=== PATIENT | female | born 1930 | race African-American/Black ===

== ENCOUNTER 2016-04-29 11:02 | Emergency (ER) | payer MEDICARE, MEDICAID ==
[~2016-04-29] VITALS: Ht 165.1 cm; Wt 116.0 kg
[~2016-04-29 11:02] MED LIST: AMLO1TAB15 PO; AMLO1TAB39 PO; APIX5TAB PO; DEXL60CA3 PO; DOCU100C50 PO; GLYB5TAB7 PO; HYDR-3933 PO; OMEP20CA10 PO; POTA10CA42 PO; POTA10TA69 PO; SITA100T6 PO; SUCR1ORA PO; TRAM50TA3 PO; [UNRECOGNIZED DRUG - OTHER]; glyburide
[2016-04-29 11:49] LABS: BASOPHILS % 0.6 % (0.0-2.0); EOSINOPHILS % 0.7 % (0.0-5.0); HEMOGLOBIN. 11.2 g/dL (12.0-16.0); LYMPHOCYTES % 10.3 % (20.0-50.0); MEAN CORPUSCULAR HEMOGLOBIN 28.1 pg (28.0-32.0); MEAN CORPUSCULAR HGB CONC 33.1 g/dL (31.0-37.0); MEAN CORPUSCULAR VOLUME 84.9 fL (81.0-99.0); MEAN PLATELET VOLUME 7.1 fl (7.4-10.4); MONOCYTES % 5.3 % (2.0-8.0); NEUTROPHILS % 83.1 % (40.0-76.0); PLATELET 244 x1000/uL (130-400); RED CELL DISTRIBUTION WIDTH 18.6 % (11.6-14.6); WHITE BLOOD COUNT 9.9 x1000/uL (4.5-11.0)
[2016-04-29 11:56] LABS: INR 1.1; PROTHROMBIN TIME 11.3 sec
[2016-04-29 12:08] LABS: ALANINE AMINOTRANSFERASE 19 IU/L (13-61); ALBUMIN 3.4 g/dL (3.4-5.0); ANION GAP 12; CALCIUM 9.3 mg/dL (8.5-10.1); CARBON DIOXIDE 25 mEq/L (21-32); CHLORIDE 105 mEq/L (98-107); CREATINE KINASE 41 IU/L (26-192); INDEX HEMOLYSI 1 (1-3); INDEX ICTERIC 1 (1-4); INDEX LIPEMIC 1 (1-3); UREA NITROGEN BLOOD 26 mg/dL (7-21); eGFR 43 mL/min (>60)
[2016-04-29 12:09] LABS: TROPONIN I < 0.02 ng/mL (0.00-0.04)
[2016-04-29] MEDS ORDERED: ACETAMINOPHEN WITH CODEINE 300/30MG TABLET PO ONE (13:15)
[2016-04-29 13:46] LABS: CLARITY URINE CLEAR (CLEAR); COLOR URINE DARK YELLOW (YELLOW); GLUCOSE URINE NEGATIVE (NEGATIVE); KETONES URINE NEGATIVE (NEGATIVE); LEUKOCYTE ESTERASE URINE NEGATIVE (NEGATIVE); NITRITE URINE NEGATIVE (NEGATIVE); OCCULT BLOOD URINE NEGATIVE (NEGATIVE); PH URINE 5.5 (4.5-8.0); PROTEIN URINE NEGATIVE (NEGATIVE); SPECIFIC GRAVITY URINE 1.018 (1.005-1.030); UROBILINOGEN URINE 0.2 E.U./dL (0.2-1.0)
[2016-04-29 14:10] VITALS: BP 112/41
== END 2016-04-29 14:26 | disposition home or self-care (01) ==
LOC: ER 11:31
DX: N28.9 Disorder of kidney and ureter, unspecified (principal); I13.0 Hypertensive heart and chronic kidney disease with heart failure and stage 1 through stage 4 chronic kidney disease, or unspecified chronic kidney disease; E11.65 Type 2 diabetes mellitus with hyperglycemia; I50.9 Heart failure, unspecified; R42 Dizziness and giddiness; I25.2 Old myocardial infarction; I48.91 Unspecified atrial fibrillation; F17.210 Nicotine dependence, cigarettes, uncomplicated; Z91.018 Allergy to other foods; Z79.1 Long term (current) use of non-steroidal anti-inflammatories (NSAID); Z79.899 Other long term (current) drug therapy; Z95.0 Presence of cardiac pacemaker
CPT/HCPCS: 36415; 70450; 71010; 74176; 80053; 81003; 82550; 83880; 84484; 85025; 85610; 93005; 99285

== ENCOUNTER 2016-07-26 10:55 | Inpatient (IN) | payer MEDICARE, MEDICAID ==
[~2016-07-26] VITALS: Ht 162.6 cm; Wt 88.5 kg
[~2016-07-26 10:55] MED LIST changes: -AMLO1TAB15 PO; -DOCU100C50 PO; +ESCI10TA54 PO; -GLYB5TAB7 PO; +HYDR-3927 PO; -HYDR-3933 PO; +MONT10TA21 PO; -OMEP20CA10 PO; -POTA10CA42 PO; +PRAV40TA58 PO; -SITA100T6 PO; +SITA50TA3 PO; +SPIR25TA4 PO; -SUCR1ORA PO; -TRAM50TA3 PO; -[UNRECOGNIZED DRUG - OTHER]; -glyburide
[2016-07-26 11:30] VITALS: BP 160/100
[2016-07-26 12:00] VITALS: BP 160/100
[2016-07-26] MEDS ORDERED: MOVANTIK PO (12:36)
[2016-07-26] MEDS ORDERED: METH500T PO (12:36)
[2016-07-26] MEDS ORDERED: GLIM2TAB2 PO (12:36)
[2016-07-26] MEDS ORDERED: TRAM-350 PO (12:36)
[2016-07-26] MEDS ORDERED: ACETAMINOPHEN 650MG/20.3ML UDC GT PRN (13:15)
[2016-07-26] MEDS ORDERED: LORAZEPAM 2MG/ML CPJ IV PRN (13:15)
[2016-07-26] MEDS ORDERED: ONDANSETRON HCL 4MG/2ML VIAL IV PRN (13:15)
[2016-07-26] MEDS ORDERED: CLONIDINE 0.1MG TABLET PO PRN (13:30)
[2016-07-26] MEDS: MORPHINE SULFATE 2 MG/ML CPJ (NOT FOR IM USE) IV PRN (14:34)
[2016-07-26] MEDS: PANTOPRAZOLE SODIUM 40 MG/VIAL IV NR (15:25)
[2016-07-26] MEDS: DEXT 5%/0.45% NACL KCL 20MEQ/L 1,000 ML IV SCH (15:25)
[2016-07-26] MEDS ORDERED: DEXTROSE 50% WATER 50ML SYRINGE IV PRN (15:30)
[2016-07-26 16:00] VITALS: BP 151/73
[2016-07-26] MEDS: IPRATROPIUM/ALBUTEROL 0.5-3(2.5)MG/3ML NEB HHN SCH ×2 (16:00→20:37)
[2016-07-26] MEDS: INSULIN LISPRO 100 UNITS/ML SUBCUT SCH ×2 (17:15→21:14)
[2016-07-26] MEDS: BLOOD SUGAR DIAGNOSTIC STRIP TEST SCH ×2 (17:37→20:59)
[2016-07-26] MEDS: HYDROCODONE/ACETAMINOPHEN 5/325MG TABLET PO PRN (17:38)
[2016-07-26 20:31] LABS: HEMATOCRIT. 30.9 % (36.0-48.0); HEMOGLOBIN. 10.2 g/dL (12.0-16.0); MEAN CORPUSCULAR HEMOGLOBIN 27.9 pg (28.0-32.0); MEAN CORPUSCULAR VOLUME 83.9 fL (81.0-99.0); MEAN PLATELET VOLUME 7.1 fl (7.4-10.4); PLATELET 337 x1000/uL (130-400); RED BLOOD CELL COUNT 3.68 mill/uL (4.2-5.4); RED CELL DISTRIBUTION WIDTH 13.6 % (11.6-14.6)
[2016-07-26 20:32] VITALS: BP 154/77
[2016-07-26 20:35] LABS: INR 1.1; PROTHROMBIN TIME 11.8 sec
[2016-07-26 20:38] LABS: CHLORIDE 98 mEq/L (98-107)
[2016-07-26 20:48] LABS: CARBON DIOXIDE 27 mEq/L (21-32); TOTAL IRON BINDING CAPACITY 273 ug/dL (250-450)
[2016-07-26 21:09] LABS: PLATELET ESTIMATE NORMAL
[2016-07-26] MEDS: AMLODIPINE 5MG TABLET PO SCH (21:13)
[2016-07-27] VITALS (7 sets, daily range): BP systolic 127–165; BP diastolic 68–86
[2016-07-27] MEDS: IPRATROPIUM/ALBUTEROL 0.5-3(2.5)MG/3ML NEB HHN SCH ×7 (00:07→23:57)
[2016-07-27] MEDS: DEXT 5%/0.45% NACL KCL 20MEQ/L 1,000 ML IV SCH ×2 (00:13→10:24)
[2016-07-27] MEDS: MORPHINE SULFATE 2 MG/ML CPJ (NOT FOR IM USE) IV PRN ×2 (00:14→08:11)
[2016-07-27] MEDS: METRONIDAZOLE 500 MG PREMIX 100 ML IV SCH ×3 (00:28→17:31)
[2016-07-27] MEDS: LEVOFLOXACIN 500MG PREMIX 100 ML IV SCH (00:28)
[2016-07-27 01:18] LABS: GLUCOSE URINE NEGATIVE (NEGATIVE); KETONES URINE NEGATIVE (NEGATIVE); LEUKOCYTE ESTERASE URINE 1+ (NEGATIVE); NITRITE URINE NEGATIVE (NEGATIVE); OCCULT BLOOD URINE NEGATIVE (NEGATIVE); PH URINE 6.5 (4.5-8.0); PROTEIN URINE NEGATIVE (NEGATIVE); SPECIFIC GRAVITY URINE 1.008 (1.005-1.030); UROBILINOGEN URINE 0.2 E.U./dL (0.2-1.0)
[2016-07-27 01:20] LABS: CLARITY URINE CLEAR (CLEAR); COLOR URINE YELLOW (YELLOW)
[2016-07-27] MEDS: BLOOD SUGAR DIAGNOSTIC STRIP TEST SCH ×4 (06:05→21:00)
[2016-07-27] MEDS: INSULIN LISPRO 100 UNITS/ML SUBCUT SCH ×4 (06:32→21:00)
[2016-07-27 07:11] LABS: CARBON DIOXIDE 28 mEq/L (21-32); CHLORIDE 99 mEq/L (98-107)
[2016-07-27 08:58] LABS: HEMATOCRIT. 32.6 % (36.0-48.0); HEMOGLOBIN. 10.7 g/dL (12.0-16.0); MEAN CORPUSCULAR HEMOGLOBIN 27.9 pg (28.0-32.0); MEAN CORPUSCULAR VOLUME 85.4 fL (81.0-99.0); MEAN PLATELET VOLUME 7.3 fl (7.4-10.4); PLATELET 317 x1000/uL (130-400); RED BLOOD CELL COUNT 3.82 mill/uL (4.2-5.4); RED CELL DISTRIBUTION WIDTH 13.7 % (11.6-14.6)
[2016-07-27] MEDS: PANTOPRAZOLE SODIUM 40 MG/VIAL IV SCH (10:24)
[2016-07-27] MEDS: AMLODIPINE 5MG TABLET PO SCH ×2 (10:24→21:00)
[2016-07-27] MEDS: FERROUS SULFATE 325MG TABLET PO SCH (10:38)
[2016-07-27] MEDS: PANTOPRAZOLE SODIUM 40 MG/VIAL IV NR (12:38)
[2016-07-27] MEDS ORDERED: CLONIDINE 0.2MG TABLET PO PRN (13:30)
[2016-07-27] MEDS ORDERED: CLONIDINE 0.1MG TABLET PO PRN (13:30)
[2016-07-27] MEDS ORDERED: IOHEXOL-300 100 ML BOTTLE ONE (13:47)
[2016-07-27] MEDS ORDERED: SODIUM CHLORIDE 0.9% 10ML VIAL ONE (13:47)
[2016-07-27 14:05] LABS: PLATELET ESTIMATE NORMAL
[2016-07-27] MEDS: HYDROCODONE/ACETAMINOPHEN 5/325MG TABLET PO PRN ×2 (14:21→18:43)
[2016-07-27] MEDS: LOSARTAN POTASSIUM 25 MG TABLET PO SCH (14:21)
[2016-07-27 16:09] LABS: CARCINO EMBRYONIC ANTIGEN 2.8 ng/ml
[2016-07-28] VITALS: BP 118/74
[2016-07-28] MEDS: LEVOFLOXACIN 500MG PREMIX 100 ML IV SCH (00:50)
[2016-07-28] MEDS: METRONIDAZOLE 500 MG PREMIX 100 ML IV SCH ×3 (00:52→16:30)
[2016-07-28] MEDS: DEXT 5%/0.45% NACL KCL 20MEQ/L 1,000 ML IV SCH ×2 (00:56→05:23)
[2016-07-28] MEDS: IPRATROPIUM/ALBUTEROL 0.5-3(2.5)MG/3ML NEB HHN SCH ×5 (03:40→21:19)
[2016-07-28 04:00] VITALS: BP 153/73
[2016-07-28 05:57] LABS: CHLORIDE 97 mEq/L (98-107)
[2016-07-28 06:09] LABS: CARBON DIOXIDE 24 mEq/L (21-32)
[2016-07-28] MEDS: BLOOD SUGAR DIAGNOSTIC STRIP TEST SCH ×4 (06:11→20:45)
[2016-07-28] MEDS: INSULIN LISPRO 100 UNITS/ML SUBCUT SCH ×4 (06:32→20:45)
[2016-07-28 06:53] LABS: BASOPHILS % 0.4 % (0.0-2.0); EOSINOPHILS % 0.8 % (0.0-5.0); HEMATOCRIT. 32.4 % (36.0-48.0); HEMOGLOBIN. 10.7 g/dL (12.0-16.0); LYMPHOCYTES % 9.3 % (20.0-50.0); MEAN CORPUSCULAR HEMOGLOBIN 28.1 pg (28.0-32.0); MEAN CORPUSCULAR VOLUME 84.7 fL (81.0-99.0); MEAN PLATELET VOLUME 7.2 fl (7.4-10.4); MONOCYTES % 6.5 % (2.0-8.0); PLATELET 345 x1000/uL (130-400); RED BLOOD CELL COUNT 3.82 mill/uL (4.2-5.4); RED CELL DISTRIBUTION WIDTH 13.2 % (11.6-14.6)
[2016-07-28 08:00] VITALS: BP 184/89
[2016-07-28] MEDS ORDERED: VANCOMYCIN 1 G PREMIX 200 ML IV SCH (08:30)
[2016-07-28] MEDS: CYCLOBENZAPRINE 10MG TABLET PO SCH ×3 (08:45→21:05)
[2016-07-28] MEDS: HYDROCODONE/ACETAMINOPHEN 5/325MG TABLET PO PRN ×2 (09:04→14:30)
[2016-07-28] MEDS ORDERED: LORAZEPAM 2MG/ML CPJ IV PRN (09:15)
[2016-07-28] MEDS ORDERED: MORPHINE SULFATE 2 MG/ML CPJ (NOT FOR IM USE) IV PRN (09:30)
[2016-07-28] MEDS ORDERED: MAGNESIUM 2 G PREMIX 50 ML IV NR (10:30)
[2016-07-28] MEDS ORDERED: VANCOMYCIN 1500MG in DEXTROSE 5% WATER 250ML IV NR (11:00)
[2016-07-28] MEDS: FERROUS SULFATE 325MG TABLET PO SCH (11:32)
[2016-07-28] MEDS: PANTOPRAZOLE SODIUM 40 MG/VIAL IV SCH (11:32)
[2016-07-28] MEDS: LOSARTAN POTASSIUM 25 MG TABLET PO SCH (11:33)
[2016-07-28] MEDS: AMLODIPINE 5MG TABLET PO SCH ×2 (11:33→21:05)
[2016-07-28 12:00] VITALS: BP 155/82
[2016-07-28] MEDS ORDERED: IOHEXOL-350 100 ML BOTTLE ONE (13:46)
[2016-07-28] MEDS ORDERED: SODIUM CHLORIDE 0.9% 10ML VIAL ONE ×2 (13:46→13:50)
[2016-07-28] MEDS ORDERED: SIMETHICONE 40 MG/0.6 ML 30ML ONE ×2 (13:50→17:25)
[2016-07-28 16:00] VITALS: BP 147/90
[2016-07-28] MEDS ORDERED: MIDAZOLAM HCL 5 MG/5 ML VIAL ONE (17:25)
[2016-07-28] MEDS ORDERED: FENTANYL CITRATE/PF 50MCG/ML 2ML VIAL ONE ×2 (17:25→18:16)
[2016-07-28] MEDS ORDERED: MIDAZOLAM HCL 5 MG/5 ML VIAL IV PRN (17:29)
[2016-07-28] MEDS ORDERED: LIDOCAINE HCL/EPINEPHRINE 1%-EPI 1:100,000 20 ML VIAL ONE (17:48)
[2016-07-28] MEDS ORDERED: BACITRACIN ZINC 15GM TUBE TOP ONE (17:48)
[2016-07-28] MEDS ORDERED: SKIN ADHESIVE 0.7 GM EA TOP ONE (17:51)
[2016-07-28] MEDS ORDERED: MIDAZOLAM HCL 2 MG/2 ML VIAL ONE (18:17)
[2016-07-29 00:04] VITALS: BP 148/94
[2016-07-29] MEDS: LEVOFLOXACIN 500MG PREMIX 100 ML IV SCH (00:28)
[2016-07-29] MEDS: DEXT 5%/0.45% NACL 1000ML 1,000 ML IV SCH ×3 (00:28→23:31)
[2016-07-29] MEDS: IPRATROPIUM/ALBUTEROL 0.5-3(2.5)MG/3ML NEB HHN SCH ×6 (00:37→20:49)
[2016-07-29] MEDS: METRONIDAZOLE 500 MG PREMIX 100 ML IV SCH ×4 (01:30→23:30)
[2016-07-29] MEDS: HYDROCODONE/ACETAMINOPHEN 5/325MG TABLET PO PRN ×3 (03:59→21:17)
[2016-07-29 04:38] VITALS: BP 126/64
[2016-07-29] MEDS: CYCLOBENZAPRINE 10MG TABLET PO SCH ×3 (05:57→21:06)
[2016-07-29] MEDS: BLOOD SUGAR DIAGNOSTIC STRIP TEST SCH ×4 (06:07→21:20)
[2016-07-29 06:10] LABS: CARBON DIOXIDE 26 mEq/L (21-32); CHLORIDE 97 mEq/L (98-107)
[2016-07-29] MEDS: INSULIN LISPRO 100 UNITS/ML SUBCUT SCH ×4 (06:12→21:35)
[2016-07-29 06:20] LABS: HEMATOCRIT. 29.7 % (36.0-48.0); HEMOGLOBIN. 9.9 g/dL (12.0-16.0); MEAN CORPUSCULAR VOLUME 83.9 fL (81.0-99.0); MEAN PLATELET VOLUME 7.1 fl (7.4-10.4); PLATELET 314 x1000/uL (130-400); RED BLOOD CELL COUNT 3.54 mill/uL (4.2-5.4); RED CELL DISTRIBUTION WIDTH 13.7 % (11.6-14.6)
[2016-07-29] MEDS ORDERED: SORBITOL 70% SOLN 30ML PO NR (07:30)
[2016-07-29 08:00] VITALS: BP 133/74
[2016-07-29] MEDS: FAMOTIDINE 20MG TABLET PO SCH (08:25)
[2016-07-29] MEDS: AMLODIPINE 5MG TABLET PO SCH ×2 (08:25→21:33)
[2016-07-29] MEDS: LOSARTAN POTASSIUM 25 MG TABLET PO SCH (08:25)
[2016-07-29] MEDS: FERROUS SULFATE 325MG TABLET PO SCH (08:25)
[2016-07-29] MEDS ORDERED: VANCOMYCIN 1 G PREMIX 200 ML IV SCH (09:00)
[2016-07-29 11:03] LABS: PLATELET ESTIMATE NORMAL
[2016-07-29 12:00] VITALS: BP 145/85
[2016-07-29] MEDS: MORPHINE SULFATE 2 MG/ML CPJ (NOT FOR IM USE) IV PRN ×2 (12:04→17:45)
[2016-07-29 16:00] VITALS: BP 137/81
[2016-07-29 20:00] VITALS: BP 144/73
[2016-07-29] MEDS ORDERED: METRONIDAZOLE 500MG TABLET PO SCH (23:00)
[2016-07-30] VITALS: BP 136/75
[2016-07-30] MEDS: IPRATROPIUM/ALBUTEROL 0.5-3(2.5)MG/3ML NEB HHN SCH ×6 (00:26→20:40)
[2016-07-30] MEDS: LEVOFLOXACIN 500MG PREMIX 100 ML IV SCH (00:53)
[2016-07-30 04:00] VITALS: BP 139/81
[2016-07-30] MEDS: CYCLOBENZAPRINE 10MG TABLET PO SCH ×3 (05:20→21:16)
[2016-07-30] MEDS: BLOOD SUGAR DIAGNOSTIC STRIP TEST SCH ×4 (05:27→21:07)
[2016-07-30] MEDS: INSULIN LISPRO 100 UNITS/ML SUBCUT SCH ×4 (05:40→21:14)
[2016-07-30 06:26] LABS: BASOPHILS % 0.4 % (0.0-2.0); EOSINOPHILS % 1.6 % (0.0-5.0); HEMATOCRIT. 28.8 % (36.0-48.0); HEMOGLOBIN. 9.6 g/dL (12.0-16.0); LYMPHOCYTES % 7.7 % (20.0-50.0); MEAN CORPUSCULAR HEMOGLOBIN 28.2 pg (28.0-32.0); MEAN CORPUSCULAR VOLUME 84.6 fL (81.0-99.0); MEAN PLATELET VOLUME 6.9 fl (7.4-10.4); MONOCYTES % 10.5 % (2.0-8.0); NEUTROPHILS % 79.8 % (40.0-76.0); PLATELET 299 x1000/uL (130-400); RED CELL DISTRIBUTION WIDTH 13.6 % (11.6-14.6)
[2016-07-30 06:50] LABS: CARBON DIOXIDE 26 mEq/L (21-32); CHLORIDE 97 mEq/L (98-107)
[2016-07-30 08:00] VITALS: BP 144/89
[2016-07-30] MEDS: FAMOTIDINE 20MG TABLET PO SCH (08:33)
[2016-07-30] MEDS: FERROUS SULFATE 325MG TABLET PO SCH (08:34)
[2016-07-30] MEDS: METRONIDAZOLE 500 MG PREMIX 100 ML IV SCH ×3 (08:34→23:49)
[2016-07-30] MEDS: MORPHINE SULFATE 2 MG/ML CPJ (NOT FOR IM USE) IV PRN ×3 (08:34→21:16)
[2016-07-30] MEDS: LOSARTAN POTASSIUM 25 MG TABLET PO SCH (08:34)
[2016-07-30] MEDS: AMLODIPINE 5MG TABLET PO SCH ×2 (08:34→21:12)
[2016-07-30] MEDS ORDERED: LORAZEPAM 2MG/ML CPJ IV PRN (09:15)
[2016-07-30] MEDS: HYDROCODONE/ACETAMINOPHEN 5/325MG TABLET PO PRN ×3 (09:57→23:48)
[2016-07-30] MEDS ORDERED: LEVOFLOXACIN 500MG TABLET PO SCH (11:00)
[2016-07-30 11:25] VITALS: BP 150/73
[2016-07-30 16:00] VITALS: BP 140/69
[2016-07-30 20:00] VITALS: BP 129/77
[2016-07-30 20:13] LABS: HEMOGLOBIN 9.7 g/dL (12.0-16.0)
[2016-07-30] MEDS: ASCORBIC ACID 500 MG TABLET PO SCH (21:12)
[2016-07-30] MEDS: GUAIFENESIN 200MG/10ML SUGAR FREE UDC PO PRN (21:15)
[2016-07-31] VITALS: BP 146/85
[2016-07-31] MEDS: IPRATROPIUM/ALBUTEROL 0.5-3(2.5)MG/3ML NEB HHN SCH ×6 (00:12→21:02)
[2016-07-31] MEDS: LEVOFLOXACIN 500MG PREMIX 100 ML IV SCH ×2 (01:01→23:38)
[2016-07-31 01:22] LABS: HEMATOCRIT 29.3 % (36.0-48.0); HEMOGLOBIN 9.7 g/dL (12.0-16.0)
[2016-07-31] MEDS: MORPHINE SULFATE 2 MG/ML CPJ (NOT FOR IM USE) IV PRN ×2 (01:50→06:30)
[2016-07-31 04:00] VITALS: BP 144/75
[2016-07-31] MEDS: HYDROCODONE/ACETAMINOPHEN 5/325MG TABLET PO PRN ×2 (04:15→14:03)
[2016-07-31] MEDS: CYCLOBENZAPRINE 10MG TABLET PO SCH ×3 (06:21→22:11)
[2016-07-31] MEDS: BLOOD SUGAR DIAGNOSTIC STRIP TEST SCH ×4 (06:27→20:21)
[2016-07-31] MEDS: INSULIN LISPRO 100 UNITS/ML SUBCUT SCH ×4 (06:53→20:46)
[2016-07-31 07:19] LABS: HEMATOCRIT. 28.9 % (36.0-48.0); HEMOGLOBIN. 9.6 g/dL (12.0-16.0); MEAN CORPUSCULAR VOLUME 84.4 fL (81.0-99.0); MEAN PLATELET VOLUME 7.3 fl (7.4-10.4); PLATELET 308 x1000/uL (130-400); RED BLOOD CELL COUNT 3.43 mill/uL (4.2-5.4); RED CELL DISTRIBUTION WIDTH 13.8 % (11.6-14.6)
[2016-07-31 08:00] VITALS: BP 154/75
[2016-07-31 08:21] LABS: CARBON DIOXIDE 26 mEq/L (21-32); CHLORIDE 100 mEq/L (98-107)
[2016-07-31 08:49] LABS: PLATELET ESTIMATE NORMAL
[2016-07-31] MEDS: LOSARTAN POTASSIUM 25 MG TABLET PO SCH (09:59)
[2016-07-31] MEDS: METRONIDAZOLE 500 MG PREMIX 100 ML IV SCH ×2 (09:59→17:26)
[2016-07-31] MEDS: FERROUS SULFATE 325MG TABLET PO SCH (10:00)
[2016-07-31] MEDS: AMLODIPINE 5MG TABLET PO SCH ×2 (10:00→20:53)
[2016-07-31] MEDS: FAMOTIDINE 20MG TABLET PO SCH (10:00)
[2016-07-31] MEDS: ASCORBIC ACID 500 MG TABLET PO SCH ×2 (10:01→20:53)
[2016-07-31] MEDS: MORPHINE SULFATE 15MG TABLET SR PO SCH ×2 (10:02→20:53)
[2016-07-31 12:30] VITALS: BP 152/75
[2016-07-31 16:00] VITALS: BP 148/50
[2016-07-31 20:00] VITALS: BP 129/70
[2016-08-01] VITALS: BP 130/83
[2016-08-01] MEDS: METRONIDAZOLE 500 MG PREMIX 100 ML IV SCH ×3 (00:41→17:42)
[2016-08-01] MEDS: IPRATROPIUM/ALBUTEROL 0.5-3(2.5)MG/3ML NEB HHN SCH ×6 (01:16→21:22)
[2016-08-01 04:00] VITALS: BP 135/82
[2016-08-01] MEDS: BLOOD SUGAR DIAGNOSTIC STRIP TEST SCH ×4 (06:00→21:17)
[2016-08-01] MEDS: CYCLOBENZAPRINE 10MG TABLET PO SCH ×3 (06:13→21:31)
[2016-08-01] MEDS: INSULIN LISPRO 100 UNITS/ML SUBCUT SCH ×4 (06:16→21:32)
[2016-08-01 08:00] VITALS: BP 127/68
[2016-08-01] MEDS ORDERED: HYDROMORPHONE HCL 2MG TABLET PO PRN (08:45)
[2016-08-01] MEDS: ASCORBIC ACID 500 MG TABLET PO SCH ×2 (08:46→21:38)
[2016-08-01] MEDS: FERROUS SULFATE 325MG TABLET PO SCH (08:46)
[2016-08-01] MEDS: MORPHINE SULFATE 15MG TABLET SR PO SCH ×2 (08:46→17:43)
[2016-08-01] MEDS: AMLODIPINE 5MG TABLET PO SCH ×2 (08:46→21:31)
[2016-08-01] MEDS: LOSARTAN POTASSIUM 25 MG TABLET PO SCH (08:47)
[2016-08-01] MEDS: FAMOTIDINE 20MG TABLET PO SCH (08:47)
[2016-08-01] MEDS ORDERED: MORPHINE SULFATE 2 MG/ML CPJ (NOT FOR IM USE) IV PRN ×2 (11:30→12:45)
[2016-08-01 12:00] VITALS: BP 101/61
[2016-08-01] MEDS ORDERED: LORAZEPAM 2MG/ML CPJ IV PRN (13:15)
[2016-08-01 16:00] VITALS: BP 126/76
[2016-08-01 20:00] VITALS: BP 129/59
[2016-08-01] MEDS ORDERED: MORPHINE SULFATE 15MG TABLET SR PO SCH (21:00)
[2016-08-01] MEDS ORDERED: LEVOFLOXACIN 500MG PREMIX 100 ML IV SCH (23:00)
[2016-08-02] VITALS (44 sets, daily range): BP systolic 59–160; BP diastolic 14–81
[2016-08-02] MEDS: IPRATROPIUM/ALBUTEROL 0.5-3(2.5)MG/3ML NEB HHN SCH ×6 (00:30→20:27)
[2016-08-02] MEDS: METRONIDAZOLE 500 MG PREMIX 100 ML IV SCH ×2 (01:29→08:44)
[2016-08-02] MEDS: MORPHINE SULFATE 15MG TABLET SR PO SCH ×2 (02:22→10:00)
[2016-08-02] MEDS: BLOOD SUGAR DIAGNOSTIC STRIP TEST SCH ×5 (06:12→23:42)
[2016-08-02] MEDS: INSULIN LISPRO 100 UNITS/ML SUBCUT SCH ×5 (06:13→23:46)
[2016-08-02] MEDS: CYCLOBENZAPRINE 10MG TABLET PO SCH (06:16)
[2016-08-02 06:53] LABS: HEMOGLOBIN. 9.2 g/dL (12.0-16.0); MEAN CORPUSCULAR HEMOGLOBIN 27.6 pg (28.0-32.0); MEAN CORPUSCULAR VOLUME 83.9 fL (81.0-99.0); PLATELET 328 x1000/uL (130-400); RED BLOOD CELL COUNT 3.34 mill/uL (4.2-5.4); RED CELL DISTRIBUTION WIDTH 13.5 % (11.6-14.6)
[2016-08-02 07:28] LABS: CARBON DIOXIDE 28 mEq/L (21-32); CHLORIDE 97 mEq/L (98-107)
[2016-08-02] MEDS: AMLODIPINE 5MG TABLET PO SCH (08:38)
[2016-08-02] MEDS: LOSARTAN POTASSIUM 25 MG TABLET PO SCH (08:38)
[2016-08-02] MEDS: ASCORBIC ACID 500 MG TABLET PO SCH (08:38)
[2016-08-02] MEDS: FERROUS SULFATE 325MG TABLET PO SCH (08:38)
[2016-08-02] MEDS: FAMOTIDINE 20MG TABLET PO SCH (08:38)
[2016-08-02] MEDS: PANTOPRAZOLE SODIUM 40 MG/VIAL IV SCH ×2 (11:13→21:10)
[2016-08-02] MEDS: GUAIFENESIN 200MG/10ML SUGAR FREE UDC PO PRN (11:13)
[2016-08-02] MEDS ORDERED: FUROSEMIDE 40MG TABLET PO NR (11:15)
[2016-08-02] MEDS ORDERED: POTASSIUM CHLORIDE 10MEQ TABLET SR PO NR (11:15)
[2016-08-02 11:50] LABS: PLATELET ESTIMATE NORMAL
[2016-08-02] MEDS ORDERED: SODIUM BICARBONATE 7.5% 0.9 MEQ/ML 50ML SYR IV ONE (12:25)
[2016-08-02] MEDS ORDERED: EPINEPHRINE 0.1MG/ML (1:10,000) 10ML SYR ONE (12:25)
[2016-08-02] MEDS ORDERED: NOREPINEPHRINE 16 MG in DEXT 5% WATER 234 ML IV PRN (13:15)
[2016-08-02 13:54] LABS: BG BASE EXCESS -3.1 mmol/L (-2.0-2.0); BG DEOXYHEMOGLOBIN 0.6 % (0.0-5.0); BG FRACTION INSPIRED OXYGEN 100; BG HCO3 ACT 24.5 mmol/L (22.0-26.0); BG METHEMOGLOBIN 0.2 % (0.0-1.5); BG OXYGEN SATURATION 99.4 % (92.0-98.5); BG OXYHEMOGLOBIN 99.2 % (94.0-97.0); BG PCO2 55.8 mmHg (35.0-45.0); BG PO2 304.8 mmHg (75.0-100.0); BG SAMPLE SITE RIGHT RADIAL; BG TIDAL VOLUME(mL) 500 mL; BG TOTAL HEMOGLOBIN 11.3 g/dL (12.0-18.0); BG VENT MODE VENT - A/C; BG VENT RATE 14 set
[2016-08-02] MEDS ORDERED: VANCOMYCIN 1500MG in DEXTROSE 5% WATER 250ML IV SCH (15:00)
[2016-08-02] MEDS ORDERED: HYDROMORPHONE HCL/PF 2MG/ML CPJ IV PRN (15:15)
[2016-08-02] MEDS: FENTANYL CITRATE/PF 500 MCG in SODIUM CHLORIDE 0.9% 40 ML IV PRN (15:42)
[2016-08-02] MEDS: PIPERACILLIN/TAZOBACTAM 3.375 G in DEXT 5% WATER 100 ML IV SCH ×2 (15:45→21:10)
[2016-08-02] MEDS: ENOXAPARIN 30MG/0.3ML SYR SUBCUT SCH (21:11)
[2016-08-03] VITALS (53 sets, daily range): BP systolic 46–181; BP diastolic 18–140
[2016-08-03] MEDS: IPRATROPIUM/ALBUTEROL 0.5-3(2.5)MG/3ML NEB HHN SCH ×4 (00:19→11:55)
[2016-08-03] MEDS: PIPERACILLIN/TAZOBACTAM 3.375 G in DEXT 5% WATER 100 ML IV SCH ×2 (02:08→09:24)
[2016-08-03] MEDS: FENTANYL CITRATE/PF 500 MCG in SODIUM CHLORIDE 0.9% 40 ML IV PRN (02:58)
[2016-08-03 05:31] LABS: HEMATOCRIT. 29.7 % (36.0-48.0); HEMOGLOBIN. 9.7 g/dL (12.0-16.0); MEAN CORPUSCULAR HEMOGLOBIN 27.5 pg (28.0-32.0); MEAN CORPUSCULAR VOLUME 84.3 fL (81.0-99.0); MEAN PLATELET VOLUME 7.2 fl (7.4-10.4); PLATELET 294 x1000/uL (130-400); RED BLOOD CELL COUNT 3.53 mill/uL (4.2-5.4); RED CELL DISTRIBUTION WIDTH 13.9 % (11.6-14.6)
[2016-08-03] MEDS: BLOOD SUGAR DIAGNOSTIC STRIP TEST SCH ×2 (06:01→09:49)
[2016-08-03] MEDS: INSULIN LISPRO 100 UNITS/ML SUBCUT SCH ×2 (06:06→13:00)
[2016-08-03] MEDS ORDERED: DEXT 5%/0.9% NACL 1,000 ML IV SCH (08:15)
[2016-08-03 08:26] LABS: BG BASE EXCESS 2.4 mmol/L (-2.0-2.0); BG CARBOXYHEMOGLOBIN 0.3 % (0.5-1.5); BG DEOXYHEMOGLOBIN 2.2 % (0.0-5.0); BG HCO3 ACT 25.2 mmol/L (22.0-26.0); BG METHEMOGLOBIN 0.2 % (0.0-1.5); BG OXYGEN SATURATION 97.8 % (92.0-98.5); BG OXYHEMOGLOBIN 97.3 % (94.0-97.0); BG PCO2 32.3 mmHg (35.0-45.0); BG PO2 105.3 mmHg (75.0-100.0); BG SAMPLE SITE RIGHT RADIAL; BG TIDAL VOLUME(mL) 550 mL; BG VENT MODE VENT - A/C; BG VENT RATE 14 set
[2016-08-03] MEDS ORDERED: MORPHINE SULFATE 2 MG/ML CPJ (NOT FOR IM USE) IV PRN (08:30)
[2016-08-03 08:57] LABS: PLATELET ESTIMATE NORMAL
[2016-08-03] MEDS: PANTOPRAZOLE SODIUM 40 MG/VIAL IV SCH (09:23)
[2016-08-03] MEDS: ENOXAPARIN 30MG/0.3ML SYR SUBCUT SCH (09:24)
[2016-08-03] MEDS: LORAZEPAM 2MG/ML CPJ IV PRN ×2 (09:58→15:31)
[2016-08-03] MEDS ORDERED: INSULIN DETEMIR UD 100 UNITS/ML SYR SUBCUT SCH (10:00)
[2016-08-03] MEDS ORDERED: FENTANYL CITRATE/PF 500 MCG in SODIUM CHLORIDE 0.9% 40 ML IV PRN (11:45)
[2016-08-03] MEDS: MORPHINE SULFATE 100 MG in DEXT 5% WATER 90 ML IV PRN ×4 (14:47→20:56)
[2016-08-03] MEDS ORDERED: VANCOMYCIN 1 G PREMIX 200 ML IV SCH (15:00)
[2016-08-03] MEDS ORDERED: PIPERACILLIN/TAZ 3.375G PREMIX 50 ML IV SCH (15:00)
[2016-08-03] MEDS ORDERED: VANCOMYCIN 750 MG PREMIX 150 ML IV SCH (16:00)
[2016-08-04] MEDS: MORPHINE SULFATE 100 MG in DEXT 5% WATER 90 ML IV PRN (01:19)
== END 2016-08-04 03:41 | disposition expired | DRG 871 ==
LOC: 6EST 10:55 → 5WST 13:09 → CVICU 08-02 12:34
PROVIDERS: ADMIT Specialist; ATTEND Specialist
PROC: 02HV33Z Insertion of Infusion Device into Superior Vena Cava, Percutaneous Approach (ICD-10-PCS; 2016-07-28)
PROC: B518ZZA Fluoroscopy of Superior Vena Cava, Guidance (ICD-10-PCS; 2016-07-28)
PROC: B548ZZA Ultrasonography of Superior Vena Cava, Guidance (ICD-10-PCS; 2016-07-28)
PROC: 0DB68ZX Excision of Stomach, Via Natural or Artificial Opening Endoscopic, Diagnostic (ICD-10-PCS; principal; 2016-07-28 15:00)
PROC: 5A1945Z Respiratory Ventilation, 24-96 Consecutive Hours (ICD-10-PCS; 2016-08-02)
PROC: 0BH17EZ Insertion of Endotracheal Airway into Trachea, Via Natural or Artificial Opening (ICD-10-PCS; 2016-08-02)
PROC: 0JB40ZX Excision of Right Neck Subcutaneous Tissue and Fascia, Open Approach, Diagnostic (ICD-10-PCS; 2016-08-02)
PROC: 5A12012 Performance of Cardiac Output, Single, Manual (ICD-10-PCS; 2016-08-02)
DX: A41.9 Sepsis, unspecified organism (principal); J96.00 Acute respiratory failure, unspecified whether with hypoxia or hypercapnia; G92 Toxic encephalopathy; J69.0 Pneumonitis due to inhalation of food and vomit; C79.89 Secondary malignant neoplasm of other specified sites; E22.2 Syndrome of inappropriate secretion of antidiuretic hormone; I48.1 Persistent atrial fibrillation; J93.9 Pneumothorax, unspecified; N17.9 Acute kidney failure, unspecified; E44.1 Mild protein-calorie malnutrition; I82.C11 Acute embolism and thrombosis of right internal jugular vein; T79.7XXA Traumatic subcutaneous emphysema, initial encounter; K92.1 Melena; I50.42 Chronic combined systolic (congestive) and diastolic (congestive) heart failure; I46.9 Cardiac arrest, cause unspecified; K29.60 Other gastritis without bleeding; I11.0 Hypertensive heart disease with heart failure; I49.5 Sick sinus syndrome; I27.2 Other secondary pulmonary hypertension; I48.0 Paroxysmal atrial fibrillation; R62.7 Adult failure to thrive; E66.01 Morbid (severe) obesity due to excess calories; K44.9 Diaphragmatic hernia without obstruction or gangrene; C80.1 Malignant (primary) neoplasm, unspecified; D25.9 Leiomyoma of uterus, unspecified; D63.8 Anemia in other chronic diseases classified elsewhere; E03.9 Hypothyroidism, unspecified; E83.42 Hypomagnesemia; F41.1 Generalized anxiety disorder; H91.90 Unspecified hearing loss, unspecified ear; I25.10 Atherosclerotic heart disease of native coronary artery without angina pectoris; J44.9 Chronic obstructive pulmonary disease, unspecified; K57.30 Diverticulosis of large intestine without perforation or abscess without bleeding; K59.00 Constipation, unspecified; K80.20 Calculus of gallbladder without cholecystitis without obstruction; M85.80 Other specified disorders of bone density and structure, unspecified site; I27.81 Cor pulmonale (chronic); X58.XXXA Exposure to other specified factors, initial encounter; E11.69 Type 2 diabetes mellitus with other specified complication; Z96.653 Presence of artificial knee joint, bilateral; Z51.5 Encounter for palliative care; Z66 Do not resuscitate; Z95.810 Presence of automatic (implantable) cardiac defibrillator; Z99.81 Dependence on supplemental oxygen; Z68.33 Body mass index [BMI] 33.0-33.9, adult; Z90.49 Acquired absence of other specified parts of digestive tract; Z88.8 Allergy status to other drugs, medicaments and biological substances; Z91.018 Allergy to other foods; Z79.899 Other long term (current) drug therapy; Z87.11 Personal history of peptic ulcer disease
CPT/HCPCS: 31500; 36415; 36569; 36600; 70498; 71010; 71250; 74177; 76937; 77001; 80048; 80053; 81001; 82270; 82375; 82378; 82728; 82805; 82962; 83036; 83540; 83550; 83735; 84443; 84550; 85014; 85018; 85025; 85610; 87040; 87070; 87086; 88305; 88312; 88313; 93005; 93970; 94002; 94640; 94664; 97162; 97530; A4216; C1725; C9113; J0171; J1170; J1650; J1815; J1956; J2060; J2250; J2270; J2543; J3010; J3370; J3475; J3490; J7030; J7040; J7042; J7050; J7060; J7620; Q9967; A4315